=== PATIENT | female | born 1965 ===

== ENCOUNTER 2017-01-20 12:44 | Emergency (ER) | payer OTHER ==
[2017-01-20 12:54] VITALS: BP 135/62; PULSE 78; RESP 18; TEMP 97.3; O2SAT 99
--- NOTE | 2017-01-20 13:26 | ED PDOC ---
HPI: CCC, URI, Sore Throat Time Seen by Provider: 01/20/17 12:56 Chief Complaint (Nursing): ENT Problem Chief Complaint (Provider): Cough, L ear pain, sore throat History Per: Patient Additional Complaint(s): Pt. states for the past 3-4 days she's had sore throat, mild cough, nasal congestion. Yesterday she developed L earache without changes to her hearing. She has been taking AlkaSeltzer Cold medication with minimal relief. Denies fever, SOB, facial pain, chest pain, hemoptysis, productive cough. Past Medical History Reviewed: Historical Data, Nursing Documentation, Vital Signs Vital Signs: Last Vital Signs Temp 97.3 F L 01/20/17 12:52 Pulse 78 01/20/17 12:52 Resp 18 01/20/17 12:52 BP 135/62 01/20/17 12:52 Pulse Ox 99 01/20/17 12:52 - Family History Family History: States: No Known Family Hx - Home Medications Home Medications: Ambulatory Orders Medication Instructions Recorded Amoxicillin [Amoxil 500 mg Cap] 500 mg PO Q8 #30 cap 01/20/17 Naproxen [Naprosyn] 500 mg PO BID PRN #30 tab 01/20/17 - Allergies Allergies/Adverse Reactions: Allergies Allergy/AdvReac Type Severity Reaction Status Date / Time No Known Allergies Allergy Verified 01/20/17 12:51 Review of Systems ROS Statement: Except As Marked, All Systems Reviewed And Found Negative ENT: Positive for: Ear Pain, Nose Congestion, Throat Pain Respiratory: Positive for: Cough Physical Exam - Reviewed Nursing Documentation Reviewed: Yes Vital Signs Reviewed: Yes - Physical Exam Appears: Positive for: Well, Non-toxic, No Acute Distress Head Exam: Positive for: ATRAUMATIC, NORMAL INSPECTION, NORMOCEPHALIC Skin: Positive for: Normal Color, Warm. Negative for: Rash Eye Exam: Positive for: EOMI, Normal appearance, PERRL ENT: Positive for: TM Is/Are (L TM is erythematous and bulging; R TM WNL), Hearing Is (grossly intact), Nasal Congestion. Negative for: Sinus Pain/ Drainage, Pharyngeal Erythema, Tonsillar Exudate, Tonsillar Swelling Neck: Positive for: Normal, Painless ROM Cardiovascular/Chest: Positive for: Regular Rate, Rhythm Respiratory: Positive for: CNT, Normal Breath Sounds Back: Positive for: Normal Inspection Extremity: Positive for: Normal ROM Neurologic/Psych: Positive for: Alert, Oriented - ECG O2 Sat by Pulse Oximetry: 99 Disposition - Clinical Impression Clinical Impression: URI (upper respiratory infection), Otitis media - Patient ED Disposition Is Patient to be Admitted: No - Disposition Referrals: [facility] [Outside] Disposition: Routine/Home Disposition Time: 13:27 Condition: STABLE Prescriptions: Amoxicillin [Amoxil 500 mg Cap] 500 mg PO Q8 #30 cap Naproxen [Naprosyn] 500 mg PO BID PRN #30 tab PRN Reason: Pain Instructions: Otitis Media (ED), Upper Respiratory Infection (ED)
== END 2017-01-20 13:47 | disposition home or self-care (01) ==
LOC: H.ER 12:44
DX: H66.90 Otitis media, unspecified, unspecified ear (principal); J06.9 Acute upper respiratory infection, unspecified; J02.9 Acute pharyngitis, unspecified